=== PATIENT | female | born 1975 | race Caucasian/White ===

== ENCOUNTER 2023-03-30 22:44 | Inpatient (IN) | payer MEDICAID, SELFPAY ==
[2023-03-30] VITALS (12 sets, daily range): BP systolic 94–122; BP diastolic 47–83; BMI 22.6
--- NOTE | 2023-03-30 19:25 | ED.GENMED ---
History of Present Illness
General
Chief Complaint: Abnormal Lab Value
Source: patient
Exam Limitations: none
Time Seen by Provider: 03/30/23 18:54
Travel History
Have you had any contact with someone who has COVID-19?: No
Do you have any symptoms of coronavirus? Fever > 100 degrees, chills, cough, shortness of breath, sore throat, loss of taste or smell, muscle aches, or headache?: No
History of Present Illness
History of Present Illness:
This is a 47 year old female that is brought in by ambulance with c/o abnormal labs. States that she has routine blood work done today and she was told that her Hgb was low. states that they did not tell her what it was. States that she has been a
little dizzy and that she did vomit once. Denies any fever, chills, chest pain, SOB, abd pain, nausea, diarrhea, black or bloody stool, headache, urinary burning.
Past History
Past History
ED Past Medical History: Cancer (Breast right) and Psychiatric (Depression. Schizophrenia,)
ED Past Surgical History: Cholecystectomy, (X 3) and Other (left breast biopsy that was benign)
Social History
Tobacco: Smoker
Alcohol: None
Personal:
Living: with family
Review of Systems
Review of Systems
All Other Systems: ROS reviewed and negative except as documented in HPI and ROS
Constitutional: Reports no symptoms; Denies fever or chills
EENT: Reports no symptoms
Respiratory: Reports no symptoms; Denies cough or trouble breathing
Cardiac: Reports no symptoms; Denies chest pain
ABD/GI: Reports vomiting; Denies abdominal pain, nausea, diarrhea, bloody stools or black stools
: Reports no symptoms; Denies dysuria, frequency or urgency
Musculoskeletal: Reports no symptoms
Skin: Reports no symptoms
Neurological: Reports dizzy; Denies headache
Psychiatric: Reports no symptoms
Phy Exam
General Physical Exam
General Presentation: no apparent distress
General age: appears stated age
General Skin: warm, dry and pale
General Habitus: normal
General Mental: alert
General Hydration: appears well hydrated
ENT Exam
ENT Exam: TM's normal, pharynx normal and neck supple
Eye Exam
Eye Exam: EOMI
Cardiovascular Exam
Cardiovascular Exam: regular rate/rhythm, no edema and normal peripheral pulses
Pulmonary Exam
Pulmonary Exam: lungs clear, no respiratory distress, no rales, chest non tender, no crackles, no rhonchi, no wheezing and no cough
Gastrointestinal Exam
Gastrointestinal Exam: normal bowel sounds, non tender, soft, no organomegaly, no pulsatile mass, non distended and other (Rectal exam hem negative)
Musculoskeletal Exam
Musculoskeletal Exam: full ROM, no edema and other (cast on right foot and lower leg)
Skin Exam
Skin Exam: warm/dry, no rash, no petechia and pallor
Psychiatric Exam
Psychiatric Exam: normal mood/affect
Course
Orders/Labs/Results
Orders:
Orders
03/30/23 18:13
EKG [Electrocardiogram (*1)] Urgent
Reason for Study: Tachycardia
EKG- Treatment ONCE
03/30/23 18:32
Alteplase [Cathflo/Activase] 2 mg IV NOW STA
03/30/23 19:35
Type+Screen Urgent
CMP [Comprehensive Metabolic Panel] Urgent
Complete Blood Count/With Diff Urgent
03/30/23 19:58
* Blood Bank Products Urgent
Blood Bank Products: *Packed RBC Leuko(PRBC's)
Quantity: 2
Transfuse Today: Yes
Reason: Anemia
IV Insert/Care/Rem.- Treatment PRN
03/30/23 20:45
Acetaminophen [Tylenol] 1,000 mg .ROUTE .STK-MED ONE
03/30/23 20:47
Acetaminophen [Tylenol] 1,000 mg PO NOW STA
Abnormal Lab Results
03/30/23
19:35
WBC 4.2 L 10^3/uL
(4.8-10.8)
RBC 1.95 L 10^6/uL
(4.20-5.40)
Hgb 5.4 L* g/dL
(12.0-16.0)
Hct 17.9 L* %
(37.0-47.0)
MCHC 30.2 L g/dL
(33.0-37.0)
RDW 19.2 H %
(11.5-14.5)
Absolute Lymphs (auto) 0.9 L 10^3/uL
(1.2-3.4)
Immature Gran % 1.0 H %
(0-0.5)
Monocytes % 11.0 H %
(1.7-9.3)
Sodium 132 L mmol/L
(135-145)
Potassium 3.0 L mmol/L
(3.5-5.1)
Chloride 91 L mmol/L
(98-107)
Carbon Dioxide 34 H mmol/L
(22-30)
Alkaline Phosphatase 456 H U/L
(38-126)
Total Protein 5.5 L g/dl
(6.3-8.2)
Albumin 2.7 L g/dl
(3.5-5.0)
Crossmatch IS Only See Detail
03/30/23 19:35
03/30/23 19:35
WBC slightly low. H/H very low, Plt normal, Sodium slightly low. hypokalemia, chloride low, carbon dioxide elevation. Alk phos elevation. total protein low. Albumin low.
Vital Signs
Initial and Last Documented VS:
Initial Vital Signs
Pulse Ox
100
03/30/23 18:09
Last Documented Vital Signs
Temp Pulse Resp BP Pulse Ox
98.4 F 110 18 108/72 100
03/30/23 18:11 03/30/23 20:49 03/30/23 20:49 03/30/23 20:49 03/30/23 20:49
MDM/Problems Addressed
Differential Diagnosis Includes:
Abnormal labs, Anemia
MDM/Problems Addressed:
This is a 47 year old female that comes in with c/o abd normal labs. States that she had routine labs done today and she was told that her Hgb was low
Will get labs. Blood consent signed and patient will be given PRBC;s as needed.
Chronic conditions affecting care:
history of Cancer
Acute Exacerbation and/or Progression of Chronic Illness:
NA
*Pulse Oximetry
Patient hypoxic: no
*EKG
Interpreted by ED Provider?: NA
Rate: EKG- N/A
*Call Center Coordinator Interpretation
Rate: tachycardiac
Heart Rate: 110
Rhythm: sinus tachycardia
*Critical Care Note
Total Time (30-74mins, 75-104mins- exclusive of procedures): Not Applicable
ED Attending Note
-
Portions of this chart may have been created with voice recognition software.� Occasional wrong word or��sound alike� substitutions may have occurred due to the inherent limitations of voice recognition software.
Discharge Plan
Departure
Patient Disposition: Admit
Date of Disposition: 03/30/23
Time of Disposition: 20:02
Admit to: Telemetry
Presentation/result/management discussed w/ accepting MD/DO: Hospitalist
Patient with high blood pressure during this ER visit?: No
Condition: Good
Covid-19: Not Applicable
Discharge Problem:
Low hemoglobin
Prescriptions:
No Action
anastrozole 1 mg Tablet
1 mg PO DAILY
acetaminophen 325 mg Tablet
650 mg PO Q8H
acetaminophen 325 mg Tablet
650 mg PO Q6H PRN (Reason: mild pain/temp>100.4)
sennosides-docusate sodium [Senna-S] 8.6-50 mg Tablet
2 tab-cap PO HS
melatonin 3 mg Tablet
6 mg PO HS
tramadol 50 mg Tablet
25 mg PO Q6H PRN (Reason: moderate pain)
alprazolam 0.25 mg Tablet
0.25 mg PO Q12H PRN (Reason: anxiety)
magnesium hydroxide [Milk of Magnesia] 400 mg/5 mL Suspension
30 ml PO DAILY PRN (Reason: if no bm x 3 days)
pantoprazole 40 mg Tablet,Delayed Release (Dr/Ec)
40 mg PO DAILY
Fleet Enema 19-7 gram/118 mL Enema
118 ml IA DAILY PRN (Reason: if suppository is ineffective)
morphine 10 mg/5 mL Solution
0.5 mg PO Q6H PRN (Reason: severe pain/sob)
Rx Instructions:
0.25ml
mirtazapine 15 mg Tablet
15 mg PO HS
duloxetine 30 mg Capsule,Delayed Release(Dr/Ec)
90 mg PO DAILY
magnesium oxide 400 mg magnesium Tablet
400 mg PO BID
Interventions
Interventions:
*Risk Screen - Suicide Last Done: 03/30/23 18:11
*General Assessment Last Done: 03/30/23 18:11
*Neglect/Abuse Screening Last Done: 03/30/23 18:11
ED- Fall Risk Assessment Last Done: 03/30/23 20:08
*ED COVID-19 Vaccine History Last Done: 03/30/23 18:11
[2023-03-30 19:47] LABS: % Basophils 0.2 % (0-2); % Eosinophils 1.2 % (0-6); % Lymphocytes 20.6 % (20.5-51.1); Absolute Eosinophils 0.1 10^3/uL (0-0.7); Absolute Lymphocytes 0.9 10^3/uL (1.2-3.4); Absolute Monocytes 0.5 10^3/uL (0.1-0.6); Absolute Neutrophils 2.8 10^3/uL (1.4-6.5); Mean Corp Hgb Conc. 30.2 g/dL (33.0-37.0); Mean Corpuscular Hgb 27.7 pg (27.0-31.0); Mean Corpuscular Volume 91.8 fL (81.0-99.0); Mean Platelet Volume 8.9 fL (7.4-10.4); Nucleated Red Blood Cells % 2.2 %; Platelet Count 271 10^3/uL (130-400); Red Blood Cell Count 1.95 10^6/uL (4.20-5.40); Red Cell Dist. Width 19.2 % (11.5-14.5); White Blood Cell Count 4.2 10^3/uL (4.8-10.8)
[2023-03-30 19:51] LABS: Hematocrit 17.9 % (37.0-47.0); Hemoglobin 5.4 g/dL (12.0-16.0)
[2023-03-30] MEDS: CATHFLO/ACTIVASE 2 MG IV (19:53)
[2023-03-30 19:59] LABS: ALT (SGPT) 14 U/L (0-35); AST (SGOT) 31 U/L (14-36); Albumin 2.7 g/dl (3.5-5.0); Alkaline Phosphatase 456 U/L (38-126); Blood Urea Nitrogen 16 mg/dl (7-17); Calcium 8.8 mg/dl (8.4-10.2); Carbon Dioxide 34 mmol/L (22-30); Chloride 91 mmol/L (98-107); Estimated Creatinine Clearance 64 ml/min; Glucose 95 mg/dl (70-99); Sodium 132 mmol/L (135-145); Total Bilirubin 0.4 mg/dl (0.2-1.3); Total Protein 5.5 g/dl (6.3-8.2); eGFR > 60.00
--- NOTE | 2023-03-30 20:02 | VATNOTE ---
cathflo given now since no blood return; pt. has peripheral IV for blood transfusion. Will recheck in one hour.
[2023-03-30] MEDS: TYLENOL 1000 MG PO (20:47)
--- NOTE | 2023-03-30 21:13 | VATNOTE ---
left subq port checked @ 2100 for blood return; nothing @ this time. will recheck @ 2200.
--- NOTE | 2023-03-30 21:15 | HPS.HSE ---
Addendum entered and electronically signed by Madeline Guaman DO 03/31/23 00:32:
The patient is seen and examined. I discussed the patient with Madelaine, reviewed her history and physical, and agree with this and her assessment and plan of care as per below.
VSS at this time, AF, she is receiving 1 unit during my examination of PRBC , tolerating it well.
CV RRR, no m/r/g
Lungs CTA b/l
Abd soft, nt/nd
Cast on RLE
Marked anemia, no known active bleeding
-iron studies, B-12, folate
-2 U PRBC, repeat CBC
-Heme/Onc consultation
Hypokalemia-repleted K in ED, repeat lab in am and monitor, check Magnesium
Other chronic medical issues as per below.
Original Note:
Family Physician
-
Family Physician: Leland Uribe, DO
Chief Complaint
-
abnormal labs blood work
History of Present Illness
47 year old female with PMH for right breast ca s/p right mastectomy with lymph nodes removed, depression, schizophrene presented to us with low blood work. patient denied any any rectal bleed and hematemesis. denied abdominal pain. denied fever,
chills, chest pain, sob. denied dysuria or hematuria. patient due for chemo in april due to relapse of breast ca.
hgb of 4.5, 2 units ordered in ER. admitting for further management.
Medical History
Past Medical History
Past Medical History: Reports Other
Additional Past Medical History:
right breat ca
depression
schizophrenia
Past Surgical History: Reports Other
Additional Past Surgical History:
right mastectomy
cholecystectomy
left hip replacement
c section x3
Social History
Tobacco: Smoker (3-5 cigrettes daily)
Alcohol: None
Drug: None
Personal:
Living: [facility]
Family History
Family History: Not pertinent
Allergies / Home Medications
Allergies reflects when Allergies were last updated in [facility].
Home Medications with original date entered in [facility]
Allergy/Medication List:
Allergies
Allergy/AdvReac Type Severity Reaction Status Date / Time
latex Allergy Hives Verified 03/30/23 18:27
Penicillins Allergy Rash Verified 03/30/23 18:27
Home Medications
acetaminophen 325 mg tablet 650 mg PO Q6H PRN mild pain/temp>100.4 03/30/23
acetaminophen 325 mg tablet 650 mg PO Q8H 03/30/23
alprazolam 0.25 mg tablet 0.25 mg PO Q12H PRN anxiety 03/30/23
anastrozole 1 mg tablet 1 mg PO DAILY 03/30/23
duloxetine 30 mg capsule,delayed release 90 mg PO DAILY 03/30/23
magnesium hydroxide 400 mg/5 mL oral suspension (Milk of Magnesia) 30 ml PO DAILY PRN if no bm x 3 days 03/30/23
magnesium oxide 400 mg PO BID 03/30/23
melatonin 3 mg tablet 6 mg PO HS 03/30/23
mirtazapine 15 mg tablet 15 mg PO HS 03/30/23
morphine 10 mg/5 mL oral solution 0.5 mg PO Q6H PRN severe pain/sob 03/30/23
pantoprazole 40 mg tablet,delayed release 40 mg PO DAILY 03/30/23
sennosides 8.6 mg-docusate sodium 50 mg tablet (Senna-S) 2 tab-cap PO HS 03/30/23
sodium phosphates 19 gram-7 gram/118 mL enema (Fleet Enema) 118 ml TN DAILY PRN if suppository is ineffective 03/30/23
tramadol 50 mg tablet 25 mg PO Q6H PRN moderate pain 03/30/23
Review of Systems
-
Constitutional: Reports No Symptoms
EENT: Reports No Symptoms
Respiratory: Reports No Symptoms
Cardiac: Reports No Symptoms
Abdomen/GI: Reports No Symptoms
: Reports No Symptoms
Musculoskeletal: Reports No Symptoms
Skin: Reports No Symptoms
Neurological: Reports No Symptoms
Endocrine: Reports No Symptoms
Hematologic/Lymphatic: Reports No Symptoms
Psych: Reports No Symptoms
Physical Exam
Vital Signs
Vital Signs
Temp Pulse Resp BP Pulse Ox
98.4 F 110 18 108/72 100
03/30/23 18:11 03/30/23 20:49 03/30/23 20:49 03/30/23 20:49 03/30/23 20:49
Physical Exam
General: Well Developed, Well Nourished and No Apparent Distress
HEENT: NormoCephalic, Moist mucous membranes and Atraumatic
Respiratory: Clear
Cardiac: S1/S2 and Regular Rhythm; No Murmur or Rub
GI: Soft, Non Tender, Non Distended and Normal Bowel Sounds; No Organomegaly
Rectal: Deferred by Provider
Musculoskeletal: No Clubbing, No Cyanosis and No Edema
Skin: No Rash
Neuro: Nonfocal/grossly intact
Psych: Calm
Laboratory Results
-
03/30/23 19:35
03/30/23 19:35
Laboratory Results
Total Bilirubin 0.4 mg/dl (0.2-1.3) 03/30/23 19:35
AST 31 U/L (14-36) 03/30/23 19:35
ALT 14 U/L (0-35) 03/30/23 19:35
Alkaline Phosphatase 456 U/L (38-126) H 03/30/23 19:35
Data Reviewed
-
Lab Data: Labs Reviewed by me
Impression/Plan
-
#anemia likely from chronic disease
-hgb 5.4
-no active bleeding
-transfusing with 2 units of blood
-trend hgb
-obtain iron panel, b12, ferritin, folate
-ctm
#hyponatremia likely hypovolemic
-na 132, k 3.0
-kcl oral
-monitor BMP in am
#tachycardia likely from anemia
-EKG with sinus tachy
ctm
#hxt of right breast ca s/p mastectomy/lymph nodes removed
-in relpase
-due for chemo in april
-on anastrazole
-morphine prn for pain
-tramadol continued
#GERD
-PPI continued
#anxiety/depression/schizophrenia
-Xanax, duloxetine, Remeron
#nicotine dependence
-nicotine patch
#DVT prophylaxis
-scd
#CODE status
-full code
--- NOTE | 2023-03-30 22:11 | VATNOTE ---
reassessed port after another 1 hr dwell time of Cathflo. NO blood return. Port flushes well & can be used however. Blood infusing thru left arm peripheral 20p now.
--- NOTE | 2023-03-30 22:19 | VATNOTE ---
500 units heparin instilled in port per protocol.
[2023-03-30] MEDS: KCL ELIXIR 40 MEQ PO (22:54)
[2023-03-31] VITALS (8 sets, daily range): BP systolic 116–146; BP diastolic 74–86; BMI 22.1
[2023-03-31] MEDS: REMERON 15 MG PO ×2 (01:06→21:05)
[2023-03-31] MEDS: MELATONIN 6 MG PO ×2 (01:06→21:05)
[2023-03-31] MEDS: MORPHINE ORAL SOLUTION 0.5 MG PO ×3 (01:28→18:36)
[2023-03-31 01:29] LABS: Magnesium 2.1 mg/dl (1.6-2.3)
--- NOTE | 2023-03-31 01:48 | PTCARENOTE ---
Received patient from ER, AAOx4 with blood transfusing and finished at 0057. Patient pulled over from stretcher to bed with assist of 4. Cast intact to right lower leg with good capillary refill, toes warm and patient able to move them freely.
C/o pain to lower back and b/l hips and medicated per APR. Patient has left chest SQ port. Oriented to unit, call [facility] in reach. Plan of care continues.
[2023-03-31] MEDS: XANAX 0.25 MG PO ×2 (02:30→21:09)
[2023-03-31 06:16] LABS: Hematocrit 31.9 % (37.0-47.0); Mean Corp Hgb Conc. 32.9 g/dL (33.0-37.0); Mean Corpuscular Hgb 27.9 pg (27.0-31.0); Mean Corpuscular Volume 84.8 fL (81.0-99.0); Mean Platelet Volume 8.8 fL (7.4-10.4); Platelet Count 244 10^3/uL (130-400); Red Blood Cell Count 3.76 10^6/uL (4.20-5.40); White Blood Cell Count 3.6 10^3/uL (4.8-10.8)
[2023-03-31 06:21] LABS: Hemoglobin 10.5 g/dL (12.0-16.0)
[2023-03-31 06:41] LABS: Blood Urea Nitrogen 13 mg/dl (7-17); Calcium 8.5 mg/dl (8.4-10.2); Carbon Dioxide 31 mmol/L (22-30); Chloride 102 mmol/L (98-107); Estimated Creatinine Clearance 64 ml/min; Glucose 71 mg/dl (70-99); Iron 138 ug/dl (37-170); Potassium 4.9 mmol/L (3.5-5.1); Sodium 135 mmol/L (135-145); eGFR > 60.00
[2023-03-31 06:51] LABS: Percent Saturation 71 % (20-50); Total Iron Binding Capacity 193 ug/dl (265-497)
[2023-03-31 07:37] LABS: Folate 19.9 ng/ml (2.76-20); Vitamin B12 869 pg/ml (239-931)
[2023-03-31] MEDS: NICODERM TRANSDERMAL 21 MG TRANSDERM (09:23)
[2023-03-31] MEDS: ARIMIDEX 1 MG PO (09:23)
[2023-03-31] MEDS: PROTONIX 40 MG PO (09:24)
[2023-03-31] MEDS: CYMBALTA DELAYED RELEASE 90 MG PO (09:24)
--- NOTE | 2023-03-31 10:17 | W.PN.HOSP.TC ---
Today's Communication/Plan
-
see bold
Assessment / Plan
Assessment / Plan
HPI: 47 year old female with PMH for right breast ca s/p right mastectomy with lymph nodes removed, depression, schizophrene presented to us with low blood work. patient denied any any rectal bleed and hematemesis. denied abdominal pain. denied
fever, chills, chest pain, sob. denied dysuria or hematuria. patient due for chemo in april due to relapse of breast ca. Hgb of 4.5, 2 units ordered in ER. admitting for further management.
#anemia likely from chronic disease
Hemoglobin 10.5 today, improved from 5.4 status post 2 units of packed red blood cells on 03/30/2023
Iron studies not accurate since they were drawn this morning after she received the blood
Denies black or bloody stools, vaginal bleeding, or hematuria
Hematology consult pending
#hyponatremia likely hypovolemic
Resolved with IV fluids
#sinus tachycardia likely from anemia
Improved with IV fluids and IV hydration
#hxt of right breast ca s/p mastectomy/lymph nodes removed
In relpase, due for chemo in april
Continue on anastrazole
Outpatient follow-up
#GERD
PPI continued
#anxiety/depression/schizophrenia
Xanax, duloxetine, Remeron
#nicotine dependence
nicotine patch
DVT prophylaxis�SCDs
Full code
Physical Exam
General: Appears chronically ill, no acute distress
HEENT: Normocephalic, Atraumatic, EOMI, MMM
Respiratory: Clear to Auscultation bilaterally
Cardiac: Normal S1/S2, Regular Rate and Rhythm
GI: Soft, Nontender, Nondistended, Normal Bowel Sounds
Extremities: No Clubbing, Cyanosis, or Edema
Neuro: Nonfocal/Grossly Intact
Anticipated Discharge: Within 24 hours
Subjective/Interval History
-
Date of Service: March 31, 2023
Feels much better after getting 2 units of blood.
Objective Data
-
Labs:
Laboratory Results
03/31/23 03/31/23
04:14 05:45
WBC Cancelled 3.6 L
Hgb Cancelled 10.5 L D
Hct Cancelled 31.9 L
Plt Count Cancelled 244
Sodium Cancelled 135
Potassium Cancelled 4.9 D
Chloride Cancelled 102
Carbon Dioxide Cancelled 31 H
BUN Cancelled 13
Creatinine Cancelled 0.6
Glucose Cancelled 71
Calcium Cancelled 8.5
Vital Signs:
Vital Signs
Temp Pulse Resp BP Pulse Ox
98.1 F 95 18 137/83 97
03/31/23 07:30 03/31/23 07:30 03/31/23 07:30 03/31/23 07:30 03/31/23 07:30
I&O
03/30/23 03/31/23 04/01/23
06:59 06:59 06:59
Intake Total 250 / 250
Balance 250 / 250
--- NOTE | 2023-03-31 11:33 | CM ---
Patient seen bedside, initial assessment completed. Patient reports she resides at [facility] in [place] and is a LTC resident. Patient reports she uses a wheelchair, patient denies VN or SNF. Patient confirms PCP Dr. Uribe, pharmacy used through
[facility], CM will call to confirm pharmacy. Patient is hopeful to go back to [facility] today. CM spoke with Lynn in admissions at [facility] ([phone], ext [phone]), confirmed patient is a LTC resident and can accept patient back upon time of
discharge. Per Lynn, patient does use a wheelchair and she has not seen the patient ambulate with a walker. CM will continue to follow for discharge planning needs.
Plan; return to [facility] when stable
Report: [phone] ext [phone] (first floor)
[2023-03-31] MEDS: TYLENOL 650 MG PO (12:12)
--- NOTE | 2023-03-31 17:35 | CON.ONC ---
Impression
Impression
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
Plan
Plan
transfusion -- if stable in next 48 hours d/c with followup to our office
Patient History
History of Present Illness
unfortunate 47 yo WF with hx of schizophrenia admitted with fatigue from a LTC facility for fatigue with lab values in ER noting normal ANC and plts but with HGB 5.4 with CMP noting elevated alk phos with normal transaminases, normal B12 and folate
with elevated ferritin 1140 andelevated saturation 71%. Other than fatigue she notes no excessive pain -- she indicates she was recently hospitalized in [facility] for which she was diagnosed with metastatic breast cancer to the bones but d/c w/o f/u
with oncology and w/o pain meds though her outside meds indicate she is on anastrazole/tramadol. She cannot recall her original breast cancer surgeon or need for therapy following same though she had mastectomy. She had greater than expected
response to 2 units pRBCs which may be accounted for by her small stature
Past-Medical/Surgical History
depression/ schizophrenia/ r mastectomy / cholecystectomy
Patient Medication
Medication Instructions Recorded Confirmed Last Taken Type
acetaminophen 325 mg tablet 650 mg PO Q6H PRN mild 03/30/23 03/30/23 Unknown History
pain/temp>100.4
acetaminophen 325 mg tablet 650 mg PO Q8H 03/30/23 03/30/23 Unknown History
alprazolam 0.25 mg tablet 0.25 mg PO Q12H PRN anxiety 03/30/23 03/30/23 Unknown History
anastrozole 1 mg tablet 1 mg PO DAILY Cancer 03/30/23 03/30/23 Unknown History
duloxetine 30 mg capsule,delayed 90 mg PO DAILY Mental 03/30/23 03/30/23 Unknown History
release Health/Anxiety
magnesium hydroxide 400 mg/5 mL 30 ml PO DAILY PRN if no bm x 3 03/30/23 03/30/23 Unknown History
oral suspension (Milk of Magnesia) days
magnesium oxide 400 mg PO BID Supplement 03/30/23 03/30/23 Unknown History
melatonin 3 mg tablet 6 mg PO HS Sleep 03/30/23 03/30/23 Unknown History
mirtazapine 15 mg tablet 15 mg PO HS Mental Health/Anxiety 03/30/23 03/30/23 Unknown History
morphine 10 mg/5 mL oral solution 0.5 mg PO Q6H PRN severe pain/sob 03/30/23 03/30/23 Unknown History
pantoprazole 40 mg tablet,delayed 40 mg PO DAILY Gastrointestinal 03/30/23 03/30/23 Unknown History
release Issue
sennosides 8.6 mg-docusate sodium 2 tab-cap PO HS Constipation 03/30/23 03/30/23 Unknown History
50 mg tablet (Senna-S)
sodium phosphates 19 gram-7 118 ml SC DAILY PRN if suppository 03/30/23 03/30/23 Unknown History
gram/118 mL enema (Fleet Enema) is ineffective
tramadol 50 mg tablet 25 mg PO Q6H PRN moderate pain 03/30/23 03/30/23 Unknown History
Active Medications
Generic Name Dose Route Start Last Admin
Trade Name Freq PRN Reason Stop Dose Admin
Acetaminophen 650 mg 03/31/23 00:35 03/31/23 12:12
Acetaminophen 325 Mg Tablet PO 04/28/23 00:34 650 mg
Q6H PRN Administration
mild pain/temp>100.4
Alprazolam 0.25 mg 03/31/23 00:35 03/31/23 02:30
Alprazolam 0.25 Mg Tablet PO 04/28/23 00:34 0.25 mg
Q12H PRN Administration
anxiety
Anastrozole 1 mg 03/31/23 08:00 03/31/23 09:23
Anastrozole 1 Mg Tablet PO 04/28/23 07:59 1 mg
DAILY JANE Administration
Duloxetine HCl 90 mg 03/31/23 08:00 03/31/23 09:24
Duloxetine Delayed Release 30 Mg Capsule PO 04/28/23 07:59 90 mg
DAILY JANE Administration
Heparin Sodium (Porcine) 500 unit 03/30/23 22:10
Heparin Flush Pf (100 Unit/Ml) 5 Ml Syringe IV 04/27/23 22:09
PRN PRN
access
Melatonin 6 mg 03/31/23 00:35 03/31/23 01:06
Melatonin 3 Mg Tablet PO 04/28/23 00:34 6 mg
HS JANE Administration
Mirtazapine 15 mg 03/31/23 00:35 03/31/23 01:06
Mirtazapine 15 Mg Regular Release Tablet PO 04/28/23 00:34 15 mg
HS JANE Administration
Morphine Sulfate 0.5 mg 03/31/23 00:35 03/31/23 09:29
Morphine Oral Solution (10 Mg/5 Ml) Cup PO 04/14/23 00:34 0.5 mg
Q6H PRN Administration
severe pain/sob
Nicotine 21 mg 03/31/23 08:00 03/31/23 09:23
Nicotine 21 Mg Patch TRANSDERM 04/28/23 07:59 21 mg
DAILY JANE Administration
Pantoprazole Sodium 40 mg 03/31/23 08:00 03/31/23 09:24
Pantoprazole 40 Mg Delayed Release Tablet PO 04/28/23 07:59 40 mg
DAILY JANE Administration
Sodium Chloride 0 flush 03/31/23 01:00
Sodium Chloride 0.9% (Flush) Syringe IV 04/28/23 00:59
PER PROTOCOL JANE
Tramadol HCl 25 mg 03/31/23 00:35
Tramadol Hcl 50 Mg Tablet PO 04/28/23 00:34
Q6H PRN
moderate pain
Review of Systems
-
All Other Systems: Reviewed and Negative
Physical Exam
-
General: Comfortable
HEENT: Moist Mucous Membranes
Cardiology: Normal Sinus Rhythm
Pulmonary: Clear
GI: Soft and Flat
Musculoskeletal: No Clubbing, No Cyanosis and No Edema
Neurology: Non Focal
Skin: Other (no skin lesions @ mastectomy scar)
Psych: Calm and Confused
Labs
Lab Results
WBC 3.6 10^3/uL (4.8-10.8) L 03/31/23 05:45
RBC 3.76 10^6/uL (4.20-5.40) L 03/31/23 05:45
Hgb 10.5 g/dL (12.0-16.0) L D 03/31/23 05:45
Hct 31.9 % (37.0-47.0) L 03/31/23 05:45
MCV 84.8 fL (81.0-99.0) 03/31/23 05:45
MCH 27.9 pg (27.0-31.0) 03/31/23 05:45
MCHC 32.9 g/dL (33.0-37.0) L 03/31/23 05:45
RDW 17.0 % (11.5-14.5) H 03/31/23 05:45
Plt Count 244 10^3/uL (130-400) 03/31/23 05:45
MPV 8.8 fL (7.4-10.4) 03/31/23 05:45
Abs Immat Gran (auto) 0.0 10^3/uL (0-0.05) 03/30/23 19:35
Absolute Neuts (auto) 2.8 10^3/uL (1.4-6.5) 03/30/23 19:35
Absolute Lymphs (auto) 0.9 10^3/uL (1.2-3.4) L 03/30/23 19:35
Absolute Monos (auto) 0.5 10^3/uL (0.1-0.6) 03/30/23 19:35
Absolute Eos (auto) 0.1 10^3/uL (0-0.7) 03/30/23 19:35
Absolute Basos (auto) 0.0 10^3/uL (0-0.2) 03/30/23 19:35
Immature Gran % 1.0 % (0-0.5) H 03/30/23 19:35
Neutrophils % 66.0 % (42.2-75.2) 03/30/23 19:35
Lymphocytes % 20.6 % (20.5-51.1) 03/30/23 19:35
Monocytes % 11.0 % (1.7-9.3) H 03/30/23 19:35
Eosinophils % 1.2 % (0-6) 03/30/23 19:35
Basophils % 0.2 % (0-2) 03/30/23 19:35
Creatinine 0.6 mg/dL (0.6-1.0) 03/31/23 05:45
Vital Signs
Vital Signs
Temp Pulse Resp BP Pulse Ox
98 F 102 16 125/83 99
03/31/23 15:25 03/31/23 15:25 03/31/23 15:25 03/31/23 15:25 03/31/23 15:25
[2023-03-31] MEDS: ULTRAM 25 MG PO (21:24)
[2023-04-01] MEDS: MORPHINE ORAL SOLUTION 0.5 MG PO ×2 (00:09→10:14)
[2023-04-01] MEDS: MORPHINE SULFATE 0.5 MG IV (02:34)
[2023-04-01 05:09] VITALS: BP 137/76
--- NOTE | 2023-04-01 07:47 | W.PN.ONC2 ---
Today's Communication / Plan
-
Await CBC. If stable discharge back to [facility] with outpatient oncologic follow-up.
Anastrozole is listed on her medication list. Continue this for now. Suspect she is taking it even if she denies taking antineoplastic therapy as she is a care home patient and they would be prescribing it if it is on her list.
Impression
Impression
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
Schizophrenia
Plan
Plan
Await follow-up CBC following transfusion. Symptomatic improvement suggest good response.
If stable, okay for discharge with follow-up either with her primary oncologist through [facility] or in our office as she lives in [place].
My office is aware. Please also have case management coordinate with the [facility] breast cancer navigators to ensure seamless transition for oncologic follow-up.
Subjective/Objective
Chief Complaint
ACS Oncology F/U
Subjective
Tells me she feels a whole lot better following blood transfusion. Recalls her breast cancer history namely she was diagnosed with right-sided breast cancer 11/29/2015 and underwent mastectomy and had 6 positive lymph nodes. Had recurrence in her
bones in the summer 2022. Does not seem to be on any active therapy. Recently transferred and lives at [facility] in [place] since 02/25/2023. Does not have an oncologist that she is aware of although there is some documentation
that she is 'due for initiation of chemotherapy in April '. Will need to clarify who is her oncologist as patient states that she does not have one.
Vital Signs:
Vital Signs
Temp Pulse Resp BP Pulse Ox
98.1 F 111 18 137/76 97
04/01/23 05:09 04/01/23 05:09 04/01/23 05:09 04/01/23 05:09 04/01/23 05:09
Lab Results:
Laboratory Data
WBC 3.6 10^3/uL (4.8-10.8) L 03/31/23 05:45
Hgb 10.5 g/dL (12.0-16.0) L D 03/31/23 05:45
Plt Count 244 10^3/uL (130-400) 03/31/23 05:45
eGFR > 60.00 03/31/23 05:45
Physical Exam
HEENT: No Jaundice
Cardiology: S1 and S2
Pulmonary: Clear
GI: Soft
[2023-04-01 07:50] VITALS: BP 141/85
[2023-04-01 08:01] LABS: Hematocrit 33.7 % (37.0-47.0); Hemoglobin 11.1 g/dL (12.0-16.0); Mean Corp Hgb Conc. 32.9 g/dL (33.0-37.0); Mean Corpuscular Hgb 28.5 pg (27.0-31.0); Mean Corpuscular Volume 86.6 fL (81.0-99.0); Mean Platelet Volume 8.8 fL (7.4-10.4); Platelet Count 190 10^3/uL (130-400); Red Blood Cell Count 3.89 10^6/uL (4.20-5.40); Red Cell Dist. Width 16.9 % (11.5-14.5); White Blood Cell Count 4.3 10^3/uL (4.8-10.8)
[2023-04-01 08:26] LABS: Blood Urea Nitrogen 18 mg/dl (7-17); Calcium 9.2 mg/dl (8.4-10.2); Carbon Dioxide 24 mmol/L (22-30); Chloride 100 mmol/L (98-107); Estimated Creatinine Clearance 64 ml/min; Glucose 91 mg/dl (70-99); Potassium 4.8 mmol/L (3.5-5.1); Sodium 134 mmol/L (135-145); eGFR > 60.00
[2023-04-01 08:33] VITALS: BP 141/85; BMI 21.6
--- NOTE | 2023-04-01 08:42 | W.PN.HOSP.TC ---
Today's Communication/Plan
-
Discharge today
Assessment / Plan
Assessment / Plan
HPI: 47 year old female with PMH for right breast ca s/p right mastectomy with lymph nodes removed, depression, schizophrene presented to us with low blood work. patient denied any any rectal bleed and hematemesis. denied abdominal pain. denied
fever, chills, chest pain, sob. denied dysuria or hematuria. patient due for chemo in april due to relapse of breast ca. Hgb of 4.5, 2 units ordered in ER. admitting for further management.
#anemia likely from chronic disease
Hemoglobin 11.1 today, was 10.5 , improved from 5.4 status post 2 units of packed red blood cells on 03/30/2023
Iron studies not accurate since they were drawn this morning after she received the blood
Denies black or bloody stools, vaginal bleeding, or hematuria
Appreciate hematology input, anemia is likely myelophthisic anemia vs inflammatory chronic disease anemia
Patient is medically stable for discharge back to [facility]
#hyponatremia likely hypovolemic
Resolved with IV fluids
#sinus tachycardia likely from anemia
Improved with IV fluids and IV hydration
#hxt of right breast ca s/p mastectomy/lymph nodes removed
In relpase, due for chemo in april
Continue on anastrazole
Outpatient follow-up
#GERD
PPI continued
#anxiety/depression/schizophrenia
Xanax, duloxetine, Remeron
#nicotine dependence
nicotine patch
DVT prophylaxis�SCDs
Full code
Physical Exam
General: Appears chronically ill, no acute distress
HEENT: Normocephalic, Atraumatic, EOMI, MMM
Respiratory: Clear to Auscultation bilaterally
Cardiac: Normal S1/S2, Regular Rate and Rhythm
GI: Soft, Nontender, Nondistended, Normal Bowel Sounds
Extremities: No Clubbing, Cyanosis, or Edema
Neuro: Nonfocal/Grossly Intact
Anticipated Discharge: Today
Subjective/Interval History
-
Date of Service: April 01, 2023
Patient feels much better after blood transfusion.
Objective Data
-
Labs:
Laboratory Results
04/01/23
07:40
WBC 4.3 L
Hgb 11.1 L
Hct 33.7 L
Plt Count 190 D
Sodium 134 L
Potassium 4.8
Chloride 100
Carbon Dioxide 24
BUN 18 H
Creatinine 0.5 L
Glucose 91
Calcium 9.2
Vital Signs:
Vital Signs
Temp Pulse Resp BP Pulse Ox
97.8 F 97 12 141/85 100
04/01/23 08:33 04/01/23 08:33 04/01/23 08:33 04/01/23 08:33 04/01/23 08:33
I&O
03/31/23 04/01/23 04/02/23
06:59 06:59 06:59
Intake Total 250 / 250 900 / 900
Balance 250 / 250 900 / 900
[2023-04-01] MEDS: NICODERM TRANSDERMAL 21 MG TRANSDERM (10:15)
[2023-04-01] MEDS: ARIMIDEX 1 MG PO (10:16)
[2023-04-01] MEDS: CYMBALTA DELAYED RELEASE 90 MG PO (10:16)
[2023-04-01] MEDS: PROTONIX 40 MG PO (10:16)
[2023-04-01 11:38] VITALS: BP 149/89
[2023-04-01] MEDS: FLUZONE QUAD 2023-2024 SYRINGE 0.5 ML IM (13:23)
--- NOTE | 2023-04-01 15:01 | CM ---
CM following re: d/c planning
Chart reviewed
Pt is medically stable for d/c and will be transferred back to [facility]
CM completed inhouse transport form and acute care w/c van will transport
Pt transport is set up for 2:30pm
Updated clinicals were placed via care port and [facility] in admissions were both notified of transport time
CM spoke with Chelsie José rag washer with oncology to help coordinate outpatient tx
No additional d/c needs identified
PLAN; d/c back to [facility]
Report: [phone] ext. [phone]
--- NOTE | 2023-04-01 17:36 | W.DCSUMMARY ---
Discharge Summary
Discharge Data
Date of Admission: 03/30/23
Date of Discharge: 04/01/23
-
Pending Results: No
Hospital Course
Discharge diagnosis:
Symptomatic anemia
Hypovolemic hyponatremia
Hypokalemia
Sinus tachycardia
History of right-sided breast cancer status postmastectomy, in relapse
Gastroesophageal reflux disease
Schizophrenia
Anxiety/depression
Cigarette nicotine dependency
Consults: Heme-onc
Hospital course:
47 year old female with a past medical history of right sided breast cancer s/p right mastectomy with lymph node removal, depression, and schizophrenia was admitted for symptomatic anemia. Patient's hemoglobin was found to be 5.4. She denies black
or bloody stools. No vaginal bleeding, no hematuria. Iron studies were not accurate since they were drawn after she received her blood. She was transfused 2 units of packed red blood cells, her hemoglobin improved to 10.5, and remained stable at
11.1 on the day of discharge.
Patient was seen in conjunction with hematology. Hematology suspects that she has�myelophthisic anemia vs inflammatory chronic disease anemia. She does have a history of right-sided breast cancer status postmastectomy with lymph node removal. Her
breast cancer is in relapse, she is due for chemo in April. She needs to continue her anastrozole, and follow-up with her usual oncologist in the office.
She was noted to have hypovolemic hyponatremia, which improved with IV fluids. She had hypokalemia. This was repleted and resolved. Her magnesium was normal.
Patient's medical conditions have been optimized. She has been cleared by hematology for discharge. She needs to follow-up with her usual oncologist in the office, as well as her primary care doctor 1 week.
Disposition: Back to [facility]
Discharge planning: Required 34 min
Discharge Plan
-
Patient Disposition: Detention/SNF
Discharge Diagnosis/Procedures: Symptomatic anemia, hypovolemic hyponatremia, sinus tachycardia, right breast cancer in relapse
Condition: Fair
Diet: Regular
Activity: As tolerated
Blood Work: CBC, BMP on 04/06/2023
Activity Restrictions/Additional Instructions:
Your hemoglobin was initially 5.4. Hematology thinks your anemia is from either chronic disease versus metastases of the breast cancer to the bone. You received 2 units of packed red blood cells, your hemoglobin improved to 10.5.
We recommend that you quit smoking, please use a nicotine patch to help.
Please follow-up with your usual oncologist, as well as your primary care doctor in 1 week.
Referrals:
Leland Uribe, DO [Family Provider] - in one week
Prescriptions:
New
nicotine 21 mg/24 hr Patch 24 Hour
21 mg transdermal DAILY Qty: 0 0RF
Continued
anastrozole 1 mg Tablet
1 mg PO DAILY
acetaminophen 325 mg Tablet
650 mg PO Q8H
acetaminophen 325 mg Tablet
650 mg PO Q6H PRN (Reason: mild pain/temp>100.4)
sennosides-docusate sodium [Senna-S] 8.6-50 mg Tablet
2 tab-cap PO HS
melatonin 3 mg Tablet
6 mg PO HS
tramadol 50 mg Tablet
25 mg PO Q6H PRN (Reason: moderate pain)
alprazolam 0.25 mg Tablet
0.25 mg PO Q12H PRN (Reason: anxiety)
magnesium hydroxide [Milk of Magnesia] 400 mg/5 mL Suspension
30 ml PO DAILY PRN (Reason: if no bm x 3 days)
pantoprazole 40 mg Tablet,Delayed Release (Dr/Ec)
40 mg PO DAILY
Fleet Enema 19-7 gram/118 mL Enema
118 ml VA DAILY PRN (Reason: if suppository is ineffective)
morphine 10 mg/5 mL Solution
0.5 mg PO Q6H PRN (Reason: severe pain/sob)
Rx Instructions:
0.25ml
mirtazapine 15 mg Tablet
15 mg PO HS
duloxetine 30 mg Capsule,Delayed Release(Dr/Ec)
90 mg PO DAILY
magnesium oxide 400 mg magnesium Tablet
400 mg PO BID
Discharge Orders:
Discharge Patient (As Directed); Ordered 04/01/23
Ordered By: Isael Park
Discharge Date and Time
Discharge Date/Time: 04/01/23 15:14
--- NOTE | 2023-04-06 11:50 | OID.BR.INTR ---
[facility] Breast Navigator - Initial
- -
Patient referred for NN f/u from Case Management. Reached out o Navneet Martel LCSW who contacted facility patient residing in. They advised patient has existing oncologist Dr. Yeimi Rubio at [facility]. Navneet to inform [place].
== END 2023-04-01 15:14 | DRG 598 ==
LOC: 4 EAST ACU 22:44
PROVIDERS: Registered Nurse; ADMITTING PHYSICIAN Internal Medicine; ATTENDING PHYSICIAN Family Medicine; CONSULT PHYSICIAN Internal Medicine Hematology & Oncology; EMERGENCY PHYSICIAN Emergency Medicine; FAMILY PHYSICIAN Internal Medicine
PROC: 30233N1 Transfusion of Nonautologous Red Blood Cells into Peripheral Vein, Percutaneous Approach (ICD-10-PCS; 2023-04-01)
DX: C50.911 Malignant neoplasm of unspecified site of right female breast (principal); C79.51 Secondary malignant neoplasm of bone; E87.1 Hypo-osmolality and hyponatremia; D63.8 Anemia in other chronic diseases classified elsewhere; R00.0 Tachycardia, unspecified; K21.9 Gastro-esophageal reflux disease without esophagitis; F20.9 Schizophrenia, unspecified; F32.A Depression, unspecified; F41.9 Anxiety disorder, unspecified; F17.200 Nicotine dependence, unspecified, uncomplicated; Z90.11 Acquired absence of right breast and nipple
CPT/HCPCS: 36430; 80048; 80053; 82607; 82728; 82746; 83540; 83550; 83735; 85025; 85027; 86850; 86900; 86901; 86920; 87070; 90686; 93005; 96374; 96375; 99285; 99406; G0008; J2997; P9016

== ENCOUNTER 2023-06-04 06:27 | Inpatient (IN) | payer OTHER, SELFPAY ==
[2023-06-04] VITALS (21 sets, daily range): BP systolic 115–157; BP diastolic 66–90; BMI 21.3
[2023-06-04 04:24] LABS: % Basophils 0.6 % (0-2); % Eosinophils 1.1 % (0-6); % Immature Granulocytes 1.3 % (0-0.5); % Lymphocytes 18.5 % (20.5-51.1); % Monocytes 13.2 % (1.7-9.3); % Neutrophils 65.3 % (42.2-75.2); Absolute Eosinophils 0.1 10^3/uL (0-0.7); Absolute Immature Granulocytes 0.1 10^3/uL (0-0.05); Absolute Lymphocytes 0.9 10^3/uL (1.2-3.4); Absolute Monocytes 0.6 10^3/uL (0.1-0.6); Absolute Neutrophils 3.1 10^3/uL (1.4-6.5); Mean Corp Hgb Conc. 31.1 g/dL (33.0-37.0); Mean Corpuscular Hgb 26.7 pg (27.0-31.0); Mean Corpuscular Volume 85.9 fL (81.0-99.0); Mean Platelet Volume 9.4 fL (7.4-10.4); Nucleated Red Blood Cells % 2.8 %; Platelet Count 292 10^3/uL (130-400); Red Blood Cell Count 2.06 10^6/uL (4.20-5.40); Red Cell Dist. Width 17.8 % (11.5-14.5); White Blood Cell Count 4.7 10^3/uL (4.8-10.8)
[2023-06-04 04:29] LABS: Hematocrit 17.7 % (37.0-47.0); Hemoglobin 5.5 g/dL (12.0-16.0)
--- NOTE | 2023-06-04 04:42 | ED.GENMED ---
History of Present Illness
General
Chief Complaint: Abnormal Lab Value
Source: patient, ambulance crew, shelter and previous hospital records (Previous hospitalization March of this year for similar symptomatic anemia. Hemoglobin 5.4 at that time. Received 2 units packed red blood cells. Evaluated by
heme-onc.)
Exam Limitations: none
Time Seen by Provider: 06/04/23 04:33
Nursing documentation reviewed up to this point in time: agreed with
Travel History
Have you had any contact with someone who has COVID-19?: No
Do you have any symptoms of coronavirus? Fever > 100 degrees, chills, cough, shortness of breath, sore throat, loss of taste or smell, muscle aches, or headache?: No
History of Present Illness
History of Present Illness:
This is a 48-year-old woman who has history of recurrent breast cancer metastatic to the bone along with history of chronic anemia. Hospitalized here in March for symptomatic anemia with hemoglobin of 5.4 at that time. Received 2 units of
packed red blood cells. Evaluated by oncology. Anemia thought to be related to myelophthisic anemia versus inflammatory chronic disease anemia.
She follows with an oncologist at [facility], Dr. Yeimi Pittman.
Plan was to start chemotherapy in April but thus far has not been initiated. She is maintained on anastrozole and tramadol.
She is a resident of long-term care facility.
She admits to progressive generalized fatigue and outside labs revealed hemoglobin of 6. Sent to the ED for further evaluation.
She states she did suffer a fall with ankle fracture in March, treated with a boot for 8 weeks which was recently discontinued. She states ankle has been feeling well and no recurrent falls since then.
She admits to intermittent nausea but has had no vomiting. Chronically poor appetite. No fever nor chills. She denies black or tarry stools.
Past History
Past History
ED Past Medical History: Cancer (Breast right), Psychiatric (Depression. Schizophrenia,) and Other (Anemia of chronic disease versus myelodysplasia)
ED Past Surgical History: Cholecystectomy, (X 3) and Other (left breast biopsy that was benign)
Social History
Tobacco: Smoker
Alcohol: None
Personal:
Living: shelter
Employment: Disabled
Family History
Family History: Other (Noncontributory)
Phy Exam
Physical Exam
Physical Exam:
GENERAL: 48-year-old woman is quite thin and frail. Awake and alert, pleasant, easily communicative.
EYE: pupils equal and reactive. Moderately pale conjunctiva. Anicteric
NECK: Supple, nontender, no meningismus, no significant adenopathy.
ENT: posterior pharynx is clear, oral mucosa is mildly dry. No rhinorrhea.
CARDIAC: Regular rate and rhythm. no murmur.
LUNGS: Clear breath sounds bilaterally, no acute respiratory distress, no wheezes/rales/rhonchi
ABDOMEN: Soft, nondistended, without focal tenderness, no r/g, no cvat. normoactive BS.
NEUROLOGICAL: Alert and oriented x3, no focal neuro deficits.
SKIN: Warm and dry, significantly pale in color, skin intact. No rash.
MUSCULOSKELETAL: No C/C/E. peripheral pulses are full and equal b/l. No palpable tenderness.
PSYCH: Normal and appropriate interaction.
Course
Orders/Labs/Results
Orders:
Orders
06/04/23 04:11
Type+Screen Urgent
CMP [Comprehensive Metabolic Panel] Urgent
Complete Blood Count/With Diff Urgent
06/04/23 04:41
Blood Bank Products [* Blood Bank Products] Urgent
Blood Bank Products: *Packed RBC Leuko(PRBC's)
Quantity: 2
Transfuse Today: Yes
Reason: Anemia
Patient will require pre-treatment for transfusion:: No
06/04/23 05:08
Morphine Sulfate 4 mg .ROUTE .STK-MED ONE
06/04/23 05:10
Morphine Sulfate 4 mg IV NOW STA
06/04/23 05:50
Admit/Transfer Patient As Directed
Co-Sign Provider:
Level of Care: Inpatient admission
Assign to:: Medical/Surgical
Physician / Group: Ralf
Diagnosis: Symptomatic Anemia
Reason for Hospitalization: Symptomatic Anemia
Expected length of stay greater than two midnights?: Yes
ELOS- Estimated Length of Stay in days: 2
I certify the patient meets the requirements for IP care: Yes
06/04/23 05:51
Code Status As Directed
Resuscitation Status: Full Code
Abnormal Lab Results
06/04/23
04:11
WBC 4.7 L 10^3/uL
(4.8-10.8)
RBC 2.06 L 10^6/uL
(4.20-5.40)
Hgb 5.5 L* g/dL
(12.0-16.0)
Hct 17.7 L* %
(37.0-47.0)
MCH 26.7 L pg
(27.0-31.0)
MCHC 31.1 L g/dL
(33.0-37.0)
RDW 17.8 H %
(11.5-14.5)
Abs Immat Gran (auto) 0.1 H 10^3/uL
(0-0.05)
Absolute Lymphs (auto) 0.9 L 10^3/uL
(1.2-3.4)
Immature Gran % 1.3 H %
(0-0.5)
Lymphocytes % 18.5 L %
(20.5-51.1)
Monocytes % 13.2 H %
(1.7-9.3)
Sodium 131 L mmol/L
(135-145)
Chloride 97 L mmol/L
(98-107)
BUN 23 H mg/dl
(7-17)
Alkaline Phosphatase 606 H U/L
(38-126)
Total Protein 5.6 L g/dl
(6.3-8.2)
Albumin 2.7 L g/dl
(3.5-5.0)
Crossmatch IS Only See Detail
06/04/23 04:11
06/04/23 04:11
Vital Signs
Initial and Last Documented VS:
Initial Vital Signs
Pulse Ox
99
06/04/23 03:45
Last Documented Vital Signs
Temp Pulse Resp BP Pulse Ox
99.0 F 101 11 118/73 96
06/04/23 06:38 06/04/23 07:00 06/04/23 07:00 06/04/23 07:00 06/04/23 07:00
MDM/Problems Addressed
Differential Diagnosis Includes:
Concern for recurrent severe symptomatic anemia.
Concern for progressive metastatic disease from breast cancer.
Concern for electrolyte abnormality, acute kidney injury.
Chronic conditions affecting care: Psychiatric illness and Cancer
Acute Exacerbation and/or Progression of Chronic Illness: Cancer
*Pulse Oximetry
Patient hypoxic: no
*Engineering Equipment Operator Interpretation
Rate: tachycardiac
Interpretation: abnormal
Rhythm: sinus
*Critical Care Note
Total Time (30-74mins, 75-104mins- exclusive of procedures): Not Applicable
Update Note
Update Note:
Hemoglobin has returned severely low at 5.5.
Patient has been typed and crossed for 2 units packed red blood cells.
She reports no prior history of adverse reactions to blood transfusions and has not required blood transfusion since last hospitalization in March.
Chemistries show mild prerenal azotemia with BUN of 23, creatinine 0.7. Clinically appears mildly dry patient admits to chronically poor oral intake.
Significantly elevated alkaline phosphatase, similar to previous most consistent with bony metastatic disease.
Due to significant anemia, symptomatic in nature we will plan to transfuse 2 units of packed red blood cells and will admit to hospitalist service.
ED Attending Note
-
Portions of this chart may have been created with voice recognition software.� Occasional wrong word or��sound alike� substitutions may have occurred due to the inherent limitations of voice recognition software.
Discharge Plan
Departure
Patient Disposition: Admit
Date of Disposition: 06/04/23
Time of Disposition: 04:55
Admit to: Telemetry
Admit to doctor: Ralf
Presentation/result/management discussed w/ accepting MD/DO: Hospitalist
Condition: Fair
Discharge Problem:
symptomatic severe anemia
Interventions
Interventions:
*Risk Screen - Suicide Last Done: 06/04/23 03:45
*General Assessment Last Done: 06/04/23 03:46
*Neglect/Abuse Screening Last Done: 06/04/23 03:46
ED- Fall Risk Assessment Last Done: 06/04/23 03:46
*ED COVID-19 Vaccine History Last Done: 06/04/23 03:46
[2023-06-04 04:48] LABS: ALT (SGPT) < 10 U/L (0-35); AST (SGOT) 27 U/L (14-36); Albumin 2.7 g/dl (3.5-5.0); Alkaline Phosphatase 606 U/L (38-126); Blood Urea Nitrogen 23 mg/dl (7-17); Calcium 9.5 mg/dl (8.4-10.2); Carbon Dioxide 29 mmol/L (22-30); Chloride 97 mmol/L (98-107); Estimated Creatinine Clearance 48 ml/min; Glucose 92 mg/dl (70-99); Potassium 3.5 mmol/L (3.5-5.1); Sodium 131 mmol/L (135-145); Total Bilirubin 0.2 mg/dl (0.2-1.3); Total Protein 5.6 g/dl (6.3-8.2); eGFR > 60.00
[2023-06-04] MEDS: MORPHINE SULFATE 4 MG IV (05:10)
--- NOTE | 2023-06-04 05:55 | HPS.HSE ---
Family Physician
-
Family Physician: Leland Uribe, DO
Chief Complaint
-
Fatigue / Weakness
History of Present Illness
Patient is a 48y F with PMH significant for metastatic breast cancer who presents to ED complaining of lightheadedness, dizziness and general fatigue for the past 2-3 weeks. Patient was hospitalized here in March for similar presentation with
Hgb at that time = 5.4 g/dL. Patient denies any abdominal pain. No noted bleeding including hematemesis, hemoptysis, hematochezia or melena.
Patient complains of fairly consistent / constant nausea and relatively poor appetite as a result.
She is currently on no active cancer treatment - though prior documentation noted plan to begin chemotherapy in April.
She follows with Dr. Rubio at [facility].
Medical History
Past Medical History
Past Medical History: Reports Other
Additional Past Medical History:
Metastatic Breast Cancer
Anxiety / Depression
Chronic Pain Syndrome / Chronic Narcotic Dependence
GERD
Past Surgical History: Reports Other
Additional Past Surgical History:
right mastectomy
cholecystectomy
left hip replacement
c section x3
Social History
Tobacco: Smoker (3-5 cigarettes daily)
Alcohol: None
Drug: None
Personal:
Living: Jail
Family History
Family History: Not pertinent
Allergies / Home Medications
Allergies reflects when Allergies were last updated in [facility].
Home Medications with original date entered in [facility]
Allergy/Medication List:
Allergies
Allergy/AdvReac Type Severity Reaction Status Date / Time
latex Allergy Hives Verified 06/04/23 03:45
Penicillins Allergy Rash Verified 06/04/23 03:45
Home Medications
acetaminophen 325 mg tablet 650 mg PO Q6H PRN mild pain/temp>100.4 03/30/23
acetaminophen 325 mg tablet 650 mg PO Q8H 03/30/23
anastrozole 1 mg tablet 1 mg PO DAILY Cancer 03/30/23
duloxetine 30 mg capsule,delayed release 90 mg PO DAILY Mental Health/Anxiety 03/30/23
magnesium hydroxide 400 mg/5 mL oral suspension (Milk of Magnesia) 30 ml PO DAILY PRN if no bm x 3 days 03/30/23
magnesium oxide 400 mg PO BID Supplement 03/30/23
melatonin 3 mg tablet 6 mg PO HS Sleep 03/30/23
mirtazapine 15 mg tablet 30 mg PO HS Mental Health/Anxiety 03/30/23
pantoprazole 40 mg tablet,delayed release 40 mg PO DAILY Gastrointestinal Issue 03/30/23
sennosides 8.6 mg-docusate sodium 50 mg tablet (Senna-S) 2 tab-cap PO HS Constipation 03/30/23
sodium phosphates 19 gram-7 gram/118 mL enema (Fleet Enema) 118 ml ID DAILY PRN if suppository is ineffective 03/30/23
nicotine 21 mg/24 hr daily transdermal patch 21 mg transdermal DAILY #0 ea 04/01/23
calcium 600 mg capsule 600 mg PO DAILY 06/04/23
cetirizine 10 mg tablet (Zyrtec) 10 mg PO HS 06/04/23
cholecalciferol (vitamin D3) 50 mcg (2,000 unit) tablet 50 mcg PO DAILY 06/04/23
diphenhydramine HCl 25 mg tablet 25 mg PO Q6HPRN PRN Itching 06/04/23
dronabinol 2.5 mg capsule 5 mg PO AC 06/04/23
ondansetron 4 mg disintegrating tablet 4 mg PO ACHS 06/04/23
oxycodone 10 mg tablet 10 mg PO Q4H PRN severe pain 06/04/23
Review of Systems
-
History Source: Patient
A 12 point ROS was completed and negative except as noted: Yes
Constitutional: Reports Fatigue; Denies Fever or Chills
Respiratory: Reports Trouble Breathing; Denies Cough
Cardiac: Denies Chest Pain or Palpitations
Abdomen/GI: Reports Nausea, Vomiting and Anorexia; Denies Abdominal Pain or Diarrhea
Musculoskeletal: Denies Joint Pain or Edema
Neurological: Reports Dizzy and Weakness; Denies Headache or Numbness
Psych: Reports Depression; Denies Anxiety
Physical Exam
Vital Signs
Vital Signs
Temp Pulse Resp BP Pulse Ox
99.1 F 105 11 124/77 97
06/04/23 03:46 06/04/23 04:15 06/04/23 04:15 06/04/23 04:00 06/04/23 04:15
Physical Exam
General: Other (Frail, pale 48y F who appears older than her stated age. Not in acute distress.)
HEENT: Moist mucous membranes and PERRLA
Respiratory: Clear; No Wheezes, Rales or Rhonchi
Cardiac: S1/S2 and Regular Rhythm; No Murmur
GI: Soft, Non Tender, Non Distended and Normal Bowel Sounds
Musculoskeletal: No Clubbing, No Cyanosis and No Edema
Neuro: AO x 3 and Nonfocal/grossly intact
Laboratory Results
-
06/04/23 04:11
06/04/23 04:11
Laboratory Results
Total Bilirubin 0.2 mg/dl (0.2-1.3) 06/04/23 04:11
AST 27 U/L (14-36) 06/04/23 04:11
ALT < 10 U/L (0-35) 06/04/23 04:11
Alkaline Phosphatase 606 U/L (38-126) H 06/04/23 04:11
Impression/Plan
-
A/P: Patient is a 48y F with PMH significant for metastatic breast cancer to bone who presents to ED complaining of worsening lightheadedness and fatigue and is noted to have significant anemia.
Symptomatic Anemia
- Admit for further evaluation and treatment.
- PRBCs x 2 units ordered in the ED.
- Follow-up post-transfusion H&H and give additional blood products if needed.
- Iron studies, B12, etc done in March and all were unremarkable.
- Anemia likely / suspected secondary to marrow involvement of metastatic breast cancer (see below).
- Follow for clinical improvement with transfusion(s).
Metastatic Breast Cancer
- Not presently on any active therapy.
- Plan had been to initiate / re-initiate chemo in April.
- ? if there are issues with current functional status and note efforts via medication to improve diet / appetite and PO intake.
- Follow up with Dr. Rubio after acute hospital stay.
- Continue current med regimen including Marinol, etc for appetite stimulation, nausea control, etc.
Protein-Calorie Malnutrition
- See above. Continue to encourage PO intake and use appetite stimulant medications as tolerated.
Chronic Pain Secondary to Metastatic Cancer to Bone
Chronic Opioid Dependence secondary to the above
- Stable. Continue current oxycodone regimen and adjust as needed for adequate symptom control.
Anxiety / Depression
- Stable. Continue current med regimen.
DVT Prophylaxis: SCDs
Code Status: Full
--- NOTE | 2023-06-04 08:14 | W.PN.HOSP.TC ---
Today's Communication/Plan
-
Blood transfusion today. Hematology-oncology consult.
Assessment / Plan
Assessment / Plan
Physical Exam
General: Other (Frail, pale 48y F who appears older than her stated age. Not in acute distress.)
HEENT: Moist mucous membranes and PERRLA
Respiratory: Clear; No Wheezes, Rales or Rhonchi
Cardiac: S1/S2 and Regular Rhythm; No Murmur
GI: Soft, Non Tender, Non Distended and Normal Bowel Sounds
Musculoskeletal: No Clubbing, No Cyanosis and No Edema
Neuro: AO x 3 and Nonfocal/grossly intact
A/P:
Symptomatic Anemia
- Admit for further evaluation and treatment.
- PRBCs x 2 units ordered in the ED.
- Follow-up post-transfusion H&H and give additional blood products if needed.
- Evaluate for possible hemolysis this time. Iron substrate suggestive of anemia of chronic disease last time and B12 and folate were okay. Last time it was felt to be ?bone marrow involvement.
- Follow for clinical improvement with transfusion(s).
-Hematology-oncology consult
Metastatic Breast Cancer
- Currently on anastrozole
- Plan had been to initiate / re-initiate chemo in April.
- ? if there are issues with current functional status and note efforts via medication to improve diet / appetite and PO intake.
- Follow up with Dr. Ramiro RAMOS.
- Continue current med regimen including Marinol, etc for appetite stimulation, nausea control, etc.
Protein-Calorie Malnutrition
- See above. Continue to encourage PO intake and use appetite stimulant medications as tolerated.
Chronic Pain Secondary to Metastatic Cancer to Bone
Chronic Opioid Dependence secondary to the above
- Stable. Continue current oxycodone regimen and adjust as needed for adequate symptom control.
Anxiety / Depression/schizophrenia
- Stable. Continue current med regimen.
DVT Prophylaxis: SCDs
Code Status: Full
Anticipated Discharge: 24 - 48 hours
Subjective/Interval History
-
Date of Service: June 04, 2023
Patient with generalized weakness. No chest pain or shortness of breath
Objective Data
-
Labs:
Laboratory Results
06/04/23
04:11
WBC 4.7 L
Hgb 5.5 L*
Hct 17.7 L*
Plt Count 292
Sodium 131 L
Potassium 3.5
Chloride 97 L
Carbon Dioxide 29
BUN 23 H
Creatinine 0.7
Glucose 92
Calcium 9.5
Total Bilirubin 0.2
AST 27
ALT < 10
Alkaline Phosphatase 606 H
Vital Signs:
Vital Signs
Temp Pulse Resp BP Pulse Ox
99.0 F 101 11 118/73 96
06/04/23 06:38 06/04/23 07:00 06/04/23 07:00 06/04/23 07:00 06/04/23 07:00
I&O
06/03/23 06/04/23 06/05/23
06:59 06:59 06:59
Intake Total 0 / 0
Balance 0 / 0
--- NOTE | 2023-06-04 10:09 | CON.ONC ---
Impression
Impression
MBC currently on anastrozole
Symptomatic anemia with hemoglobin 5.5g/dl previously felt to be myelophthisic given nucleated RBC
Plan
Plan
Transfusions support
Monitor for bleeding
Evaluate for hemolysis
Iron studies from March reflect AOCD
Folate and B12 adequate
Rising alkaline phosphatase suggest progressive disease
Patient History
History of Present Illness
Patient is a 48y F with PMH significant for metastatic breast cancer who presents to ED complaining of lightheadedness, dizziness and general fatigue for the past 2-3 weeks. Patient was hospitalized here in March for similar presentation with
Hgb at that time = 5.4 g/dL. Patient denies any abdominal pain. No noted bleeding including hematemesis, hemoptysis, hematochezia or melena.
Patient complains of fairly consistent / constant nausea and relatively poor appetite as a result. Diagnosed with right-sided breast cancer 11/29/2015 and underwent mastectomy and had 6 positive lymph nodes. Had recurrence in her bones in the
summer 2022. Recently transferred and lives at [facility] in [place] since 02/25/2023. Currently on systemic therapy with anastrozole. She follows with Yeimi Rubio at [facility].
Past-Medical/Surgical History
Past Medical History:
Metastatic breast cancer
Anxiety / Depression
Chronic Pain Syndrome / Chronic Narcotic Dependence
GERD
Past Surgical History:
Right mastectomy
Cholecystectomy
Left hip replacement
C section x3
Social History:
Tobacco: Smoker (3-5 cigarettes daily)
Alcohol: None
Drug: None
Personal:
Living: Shelter
Family History:
NA
Patient Medication
�Medication �Instructions �Recorded �Confirmed �Last Taken �Type
acetaminophen 325 mg tablet 650 mg PO Q6H PRN mild 03/30/23 06/04/23 Unknown History
pain/temp>100.4
acetaminophen 325 mg tablet 650 mg PO Q8H 03/30/23 06/04/23 Unknown History
anastrozole 1 mg tablet 1 mg PO DAILY Cancer 03/30/23 06/04/23 Unknown History
duloxetine 30 mg capsule,delayed 90 mg PO DAILY Mental 03/30/23 06/04/23 Unknown History
release Health/Anxiety
magnesium hydroxide 400 mg/5 mL 30 ml PO DAILY PRN if no BM x 3 03/30/23 06/04/23 Unknown History
oral suspension (Milk of Magnesia) days
magnesium oxide 400 mg PO BID Supplement 03/30/23 06/04/23 Unknown History
melatonin 3 mg tablet 6 mg PO HS Sleep 03/30/23 06/04/23 Unknown History
pantoprazole 40 mg tablet,delayed 40 mg PO DAILY Gastrointestinal 03/30/23 06/04/23 Unknown History
release Issue
sennosides 8.6 mg-docusate sodium 2 tab-cap PO HS Constipation 03/30/23 06/04/23 Unknown History
50 mg tablet (Senna-S)
sodium phosphates 19 gram-7 118 ml DC DAILY PRN if suppository 03/30/23 06/04/23 Unknown History
gram/118 mL enema (Fleet Enema) is ineffective
nicotine 21 mg/24 hr daily 21 mg transdermal DAILY #0 ea 04/01/23 06/04/23 Unknown Rx
transdermal patch
calcium carbonate (Calcium 600) 600 mg PO DAILY 06/04/23 06/04/23 Unknown History
cetirizine 10 mg tablet (Zyrtec) 10 mg PO HS 06/04/23 06/04/23 Unknown History
cholecalciferol (vitamin D3) 50 50 mcg PO DAILY 06/04/23 06/04/23 Unknown History
mcg (2,000 unit) tablet
diphenhydramine HCl 25 mg tablet 25 mg PO Q6HPRN PRN itching 06/04/23 06/04/23 Unknown History
(Benadryl Allergy)
dronabinol 2.5 mg capsule 5 mg PO AC 06/04/23 06/04/23 Unknown History
mirtazapine 30 mg tablet 30 mg PO HS 06/04/23 06/04/23 Unknown History
ondansetron 4 mg disintegrating 4 mg PO ACHS 06/04/23 06/04/23 Unknown History
tablet
oxycodone 10 mg tablet 10 mg PO Q4H PRN severe pain 06/04/23 06/04/23 Unknown History
Active Medications
Generic Name Dose Route Start Last Admin
Trade Name Freq PRN Reason Stop Dose Admin
Acetaminophen 650 mg 06/04/23 09:51
Acetaminophen 325 Mg Tablet PO 07/02/23 09:50
Q8H JANE
Acetaminophen 650 mg 06/04/23 09:51
Acetaminophen 325 Mg Tablet PO 07/02/23 09:50
Q6H PRN
mild pain/temp>101
Anastrozole 1 mg 06/04/23 10:00
Anastrozole 1 Mg Tablet PO 07/02/23 09:59
DAILY JANE
Duloxetine HCl 90 mg 06/04/23 10:00
Duloxetine Delayed Release 30 Mg Capsule PO 07/02/23 09:59
DAILY JANE
Hydromorphone HCl 0.5 mg 06/04/23 09:51
Hydromorphone 0.5 Mg/0.5 Ml Syringe IV 06/18/23 09:50
Q4HPRN PRN
severe pain
Sodium Chloride 1,000 mls @ 80 mls/hr 06/04/23 09:51
Nss IV
[id number] JANE
Mirtazapine 30 mg 06/04/23 22:00
Mirtazapine 15 Mg Regular Release Tablet PO 07/02/23 21:59
HS JANE
Nicotine 21 mg 06/04/23 10:00
Nicotine 21 Mg Patch TRANSDERM 07/02/23 09:59
DAILY JANE
Ondansetron HCl 4 mg 06/04/23 09:51
Ondansetron 4 Mg/2 Ml Vial IV 07/02/23 09:50
Q6HPRN PRN
nausea and vomiting
Oxycodone HCl 10 mg 06/04/23 09:51
Oxycodone 10 Mg Regular Release Tablet PO 06/18/23 09:50
Q4H PRN
moderate pain
Pantoprazole Sodium 40 mg 06/04/23 10:00
Pantoprazole 40 Mg Delayed Release Tablet PO 07/02/23 09:59
DAILY JANE
Polyethylene Glycol 17 grams 06/04/23 09:51
Polyethylene Glycol Powder 17 Grams Packet PO 07/02/23 09:50
DAILY PRN
Constipation
Senna/Docusate Sodium tablet 06/04/23 22:00
Docusate W/Senna (Renea-Colace) Tablet PO 07/02/23 21:59
HS JANE
Review of Systems
-
Negative for additional complaints other than those noted in HPI
Physical Exam
-
Physical Exam
General: Frail, pale 48y F who appears older than her stated age. Not in acute distress.
HEENT: Moist mucous membranes and PERRLA
Respiratory: Clear; No Wheezes, Rales or Rhonchi
Cardiac: S1/S2 and Regular Rhythm; No Murmur
GI: Soft, Non Tender, Non Distended and Normal Bowel Sounds
Musculoskeletal: No Clubbing, No Cyanosis and No Edema
Neuro: AO x 3 and Nonfocal/grossly intact
Labs
Lab Results
WBC 4.7 10^3/uL (4.8-10.8) L 06/04/23 04:11
RBC 2.06 10^6/uL (4.20-5.40) L 06/04/23 04:11
Hgb 5.5 g/dL (12.0-16.0) L* 06/04/23 04:11
Hct 17.7 % (37.0-47.0) L* 06/04/23 04:11
MCV 85.9 fL (81.0-99.0) 06/04/23 04:11
MCH 26.7 pg (27.0-31.0) L 06/04/23 04:11
MCHC 31.1 g/dL (33.0-37.0) L 06/04/23 04:11
RDW 17.8 % (11.5-14.5) H 06/04/23 04:11
Plt Count 292 10^3/uL (130-400) 06/04/23 04:11
MPV 9.4 fL (7.4-10.4) 06/04/23 04:11
Abs Immat Gran (auto) 0.1 10^3/uL (0-0.05) H 06/04/23 04:11
Absolute Neuts (auto) 3.1 10^3/uL (1.4-6.5) 06/04/23 04:11
Absolute Lymphs (auto) 0.9 10^3/uL (1.2-3.4) L 06/04/23 04:11
Absolute Monos (auto) 0.6 10^3/uL (0.1-0.6) 06/04/23 04:11
Absolute Eos (auto) 0.1 10^3/uL (0-0.7) 06/04/23 04:11
Absolute Basos (auto) 0.0 10^3/uL (0-0.2) 06/04/23 04:11
Immature Gran % 1.3 % (0-0.5) H 06/04/23 04:11
Neutrophils % 65.3 % (42.2-75.2) 06/04/23 04:11
Lymphocytes % 18.5 % (20.5-51.1) L 06/04/23 04:11
Monocytes % 13.2 % (1.7-9.3) H 06/04/23 04:11
Eosinophils % 1.1 % (0-6) 06/04/23 04:11
Basophils % 0.6 % (0-2) 06/04/23 04:11
Creatinine 0.7 mg/dL (0.6-1.0) 06/04/23 04:11
Vital Signs
Vital Signs
Temp Pulse Resp BP Pulse Ox
99.1 F 96 18 139/81 98
06/04/23 09:27 06/04/23 09:27 06/04/23 09:27 06/04/23 09:27 06/04/23 08:15
[2023-06-04] MEDS: NSS 1000 IV ×2 (10:18→21:50)
[2023-06-04] MEDS: DILAUDID 0.5 MG IV ×3 (10:37→23:52)
[2023-06-04] MEDS: NICODERM TRANSDERMAL 21 MG TRANSDERM (10:41)
[2023-06-04] MEDS: TYLENOL 650 MG PO ×2 (10:41→19:42)
[2023-06-04] MEDS: PROTONIX 40 MG PO (10:42)
[2023-06-04] MEDS: ARIMIDEX 1 MG PO (10:42)
[2023-06-04] MEDS: CYMBALTA DELAYED RELEASE 90 MG PO (13:50)
--- NOTE | 2023-06-04 14:35 | PTCARENOTE ---
Patient transferred and oriented to Unit without Issue. AAOX3, Pale but CDI skin, Fatigued. AssistX1 with walker. MedSurg. Patient denies any needs at this time.
[2023-06-04 15:50] LABS: Hematocrit 30.6 % (37.0-47.0); Hemoglobin 10.3 g/dL (12.0-16.0); Reticulocyte Count 1.1 % (0.4-2.8)
[2023-06-04 15:53] LABS: LDH 289 U/L (120-246)
[2023-06-04] MEDS: TYLENOL PO (17:32)
[2023-06-04] MEDS: REMERON 30 MG PO (21:32)
[2023-06-04] MEDS: SENOKOT-S 2 TABLET PO (21:32)
[2023-06-05] VITALS (8 sets, daily range): BP systolic 143–171; BP diastolic 88–112; PULSE 101–109; O2SAT 98; BMI 21.5
[2023-06-05] MEDS: TYLENOL PO (02:36)
[2023-06-05] MEDS: DILAUDID 0.5 MG IV ×5 (04:27→22:10)
[2023-06-05 04:59] LABS: Hematocrit 30.4 % (37.0-47.0); Hemoglobin 10.3 g/dL (12.0-16.0); Mean Corp Hgb Conc. 33.9 g/dL (33.0-37.0); Mean Corpuscular Hgb 28.3 pg (27.0-31.0); Mean Corpuscular Volume 83.5 fL (81.0-99.0); Mean Platelet Volume 9.5 fL (7.4-10.4); Platelet Count 249 10^3/uL (130-400); Red Blood Cell Count 3.64 10^6/uL (4.20-5.40); Red Cell Dist. Width 15.7 % (11.5-14.5); White Blood Cell Count 5.5 10^3/uL (4.8-10.8)
[2023-06-05 05:29] LABS: Blood Urea Nitrogen 19 mg/dl (7-17); Calcium 9.5 mg/dl (8.4-10.2); Carbon Dioxide 26 mmol/L (22-30); Chloride 98 mmol/L (98-107); Estimated Creatinine Clearance 56 ml/min; Glucose 94 mg/dl (70-99); Potassium 3.8 mmol/L (3.5-5.1); Sodium 134 mmol/L (135-145); eGFR > 60.00
[2023-06-05 05:52] LABS: Urine Albumin Negative (Neg - Trace); Urine Bilirubin Negative (Negative); Urine Character Clear (Clear); Urine Color Yellow; Urine Glucose Negative (Negative); Urine Ketone Negative (Negative); Urine Leukocyte Negative (Negative); Urine Nitrite Negative (Negative); Urine Occult Blood Negative (Negative); Urine Specific Gravity 1.015 (<1.030); Urine Urobilinogen Negative (Neg - 1+)
--- NOTE | 2023-06-05 07:16 | W.PN.HOSP.TC ---
Today's Communication/Plan
-
Monitor hemoglobin.
Assessment / Plan
Assessment / Plan
Physical Exam
General: Other (Frail, pale 48y F who appears older than her stated age. Not in acute distress.)
HEENT: Moist mucous membranes and PERRLA
Respiratory: Clear; No Wheezes, Rales or Rhonchi
Cardiac: S1/S2 and Regular Rhythm; No Murmur
GI: Soft, Non Tender, Non Distended and Normal Bowel Sounds
Musculoskeletal: No Clubbing, No Cyanosis and No Edema
Neuro: AO x 3 and Nonfocal/grossly intact
A/P:
Symptomatic Anemia
- PRBCs x 2 units during this hospital stay
- Follow-up post-transfusion H&H and give additional blood products if needed.
- Evaluate for possible hemolysis this time. Iron substrate suggestive of anemia of chronic disease last time and B12 and folate were okay. Last time it was felt to be ?bone marrow involvement.
-Hematology-oncology consulted
-Hemoglobin today 10.3
-LDH is elevated as well as alkaline phosphatase somewhat concerning but will follow-up hematology recommendation.
-Follow-up hemoglobin tomorrow to ensure stability.
Metastatic Breast Cancer
- Currently on anastrozole
- Plan had been to initiate / re-initiate chemo in April.
- ? if there are issues with current functional status and note efforts via medication to improve diet / appetite and PO intake.
- Follow up with Dr. Ramiro RAMOS.
- Continue current med regimen including Marinol, etc for appetite stimulation, nausea control, etc.
Protein-Calorie Malnutrition
- See above. Continue to encourage PO intake and use appetite stimulant medications as tolerated.
Urinary symptoms per patient report. UA unremarkable.
Hyponatremia
-Mild and continue to monitor as outpatient
Chronic Pain Secondary to Metastatic Cancer to Bone
Chronic Opioid Dependence secondary to the above
- Stable. Continue current oxycodone regimen and adjust as needed for adequate symptom control.
Anxiety / Depression/schizophrenia
- Stable. Continue current med regimen.
DVT Prophylaxis: SCDs
Code Status: Full
Anticipated Discharge: 24 - 48 hours
Subjective/Interval History
-
Date of Service: June 05, 2023
Patient denies any chest pain or shortness of breath today.
Objective Data
-
Labs:
Laboratory Results
06/05/23
04:24
WBC 5.5
Hgb 10.3 L
Hct 30.4 L
Plt Count 249
Sodium 134 L
Potassium 3.8
Chloride 98
Carbon Dioxide 26
BUN 19 H
Creatinine 0.6
Glucose 94
Calcium 9.5
Vital Signs:
Vital Signs
Temp Pulse Resp BP Pulse Ox
98.4 F 101 18 157/83 98
06/04/23 23:10 06/04/23 23:10 06/04/23 23:10 06/04/23 23:10 06/04/23 23:10
I&O
06/04/23 06/05/23 06/06/23
06:59 06:59 06:59
Intake Total 0 / 0 2180 / 2180
Balance 0 / 0 0 / 2180
[2023-06-05] MEDS: CYMBALTA DELAYED RELEASE 90 MG PO (08:26)
[2023-06-05] MEDS: PROTONIX 40 MG PO (08:26)
[2023-06-05] MEDS: ARIMIDEX 1 MG PO (08:27)
[2023-06-05] MEDS: NICODERM TRANSDERMAL 21 MG TRANSDERM (08:27)
[2023-06-05] MEDS: NSS 1000 IV (10:00)
[2023-06-05] MEDS: TYLENOL 650 MG PO ×2 (10:00→17:48)
--- NOTE | 2023-06-05 10:17 | PTOTSP ---
pt currently requires supervision to minimal assistance to complete simple ADLs, bed mobility. pt deferred OOB activity at time of evaluation, though reports she will ask for assistance to complete. no acute OT needs identified at this time, will
sign off.
--- NOTE | 2023-06-05 11:15 | CM ---
Patient seen bedside, initial assessment completed. Patient LTC resident at [facility]. CM spoke with nurse at [facility], Magi, confirmed patient is LTC, wheelchair bound, able to return when stable. Patient PCP Leland Uribe, [facility]. CM will continue to follow for discharge planning needs.
PLAN; d/c back to [facility] when stable
[facility]:
Report: [phone] ext. [phone]
[2023-06-05] MEDS: REMERON 30 MG PO (21:28)
[2023-06-05] MEDS: SENOKOT-S 2 TABLET PO (21:28)
[2023-06-06] MEDS: DILAUDID 0.5 MG IV ×4 (02:15→15:01)
[2023-06-06] MEDS: TYLENOL PO (02:15)
[2023-06-06 05:55] LABS: % Basophils 0.3 % (0-2); % Eosinophils 0.8 % (0-6); % Immature Granulocytes 1.4 % (0-0.5); % Lymphocytes 13.8 % (20.5-51.1); % Monocytes 12.6 % (1.7-9.3); % Neutrophils 71.1 % (42.2-75.2); Absolute Eosinophils 0.1 10^3/uL (0-0.7); Absolute Immature Granulocytes 0.1 10^3/uL (0-0.05); Absolute Lymphocytes 0.9 10^3/uL (1.2-3.4); Absolute Monocytes 0.8 10^3/uL (0.1-0.6); Absolute Neutrophils 4.6 10^3/uL (1.4-6.5); Hematocrit 32.5 % (37.0-47.0); Hemoglobin 10.8 g/dL (12.0-16.0); Mean Corp Hgb Conc. 33.2 g/dL (33.0-37.0); Mean Corpuscular Hgb 28.2 pg (27.0-31.0); Mean Corpuscular Volume 84.9 fL (81.0-99.0); Mean Platelet Volume 9.5 fL (7.4-10.4); Nucleated Red Blood Cells % 1.8 %; Platelet Count 225 10^3/uL (130-400); Red Blood Cell Count 3.83 10^6/uL (4.20-5.40); Red Cell Dist. Width 15.4 % (11.5-14.5); White Blood Cell Count 6.5 10^3/uL (4.8-10.8)
[2023-06-06 06:00] VITALS: BMI 23.0
[2023-06-06 07:00] VITALS: BP 158/109
[2023-06-06 07:07] VITALS: BP 138/95; BP 152/100; BP 159/97; PULSE 123; PULSE 128; PULSE 131
[2023-06-06 07:26] VITALS: BP 164/84
[2023-06-06] MEDS: ZOFRAN 4 MG IV (08:16)
[2023-06-06] MEDS: ARIMIDEX 1 MG PO (08:17)
[2023-06-06] MEDS: NICODERM TRANSDERMAL 21 MG TRANSDERM (08:17)
[2023-06-06] MEDS: CYMBALTA DELAYED RELEASE 90 MG PO (08:17)
[2023-06-06] MEDS: PROTONIX 40 MG PO (08:17)
[2023-06-06] MEDS: TYLENOL 650 MG PO (08:18)
--- NOTE | 2023-06-06 09:16 | W.PN.HOSP.TC ---
Today's Communication/Plan
-
Discharge
Assessment / Plan
Assessment / Plan
Gen-AAOx3, NAD
HEENT-NC, AT, anicteric, clear oral mm
Neck-supple
CV-reg, no M, +S1/S2
Lungs-clear B/L
Abd-soft, NT, ND
Ext-no edema
Musculoskeletal-no cyanosis, clubbing
Skin-warm and dry
Neuro-grossly non-focal
Psych-calm, cooperative
Mild nausea -given a dose of Zofran half an hour ago. May be related to a mild migraine headache. She only takes Tylenol as needed for her headaches.
Symptomatic Anemia
- PRBCs x 2 units during this hospital stay
- Follow-up post-transfusion H&H and give additional blood products if needed.
- Evaluate for possible hemolysis this time. Iron substrate suggestive of anemia of chronic disease last time and B12 and folate were okay. Last time it was felt to be ?bone marrow involvement.
-Hematology-oncology consulted
-Hemoglobin today 10.8, stable. No signs of hemolysis. Follow-up with oncology after discharge.
Metastatic Breast Cancer
- Currently on anastrozole
- Plan had been to initiate / re-initiate chemo in April.
- ? if there are issues with current functional status and note efforts via medication to improve diet / appetite and PO intake.
- Follow up with Dr. Ramiro RAMOS.
- Continue current med regimen including Marinol, etc for appetite stimulation, nausea control, etc.
Protein-Calorie Malnutrition
- See above. Continue to encourage PO intake and use appetite stimulant medications as tolerated.
Urinary symptoms per patient report. UA unremarkable.
Hyponatremia
-Mild and continue to monitor as outpatient
Chronic Pain Secondary to Metastatic Cancer to Bone
Chronic Opioid Dependence secondary to the above
- Stable. Continue current oxycodone regimen and adjust as needed for adequate symptom control.
Anxiety / Depression/schizophrenia
- Stable. Continue current med regimen.
DVT Prophylaxis: SCDs
Code Status: Full
Dispo - medically stable for discharge back to [facility] today. Case management aware. Patient agrees with plan.
31 minutes spent in discharge process.
Anticipated Discharge: Today
Subjective/Interval History
-
Date of Service: June 06, 2023
Patient seen and examined. Fatigue has resolved. Complaining of mild nausea. Mild headache.
Objective Data
-
Labs:
Laboratory Results
06/06/23
05:09
WBC 6.5
Hgb 10.8 L
Hct 32.5 L
Plt Count 225
Vital Signs:
Vital Signs
Temp Pulse Resp BP Pulse Ox
99.9 F 115 12 164/84 97
06/06/23 07:00 06/06/23 07:00 06/06/23 07:00 06/06/23 07:26 06/06/23 07:00
I&O
06/05/23 06/06/23 06/07/23
06:59 06:59 06:59
Intake Total 2180 / 2180 240 / 240
Balance 2180 / 2180 240 / 240
Review of Systems
-
History Source: Patient
All other systems: Reviewed and negative
--- NOTE | 2023-06-06 09:24 | W.DS.TRANS ---
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
-
Discharge Instructions:
Discharge Diagnosis/Procedures Symptomatic anemia
Diet Regular,Restrict fluids to 48 oz
Activity As tolerated
Driving Restrictions No driving
Bathing Restrictions None
Blood Work CBC in 1 week
Instructions:
Stand-Alone Forms:
Changes to Home Medications: No
Discharge Medications:
DC Medications w/original date entered in [employer]
acetaminophen 325 mg tablet 650 mg PO Q6H PRN mild pain/temp>100.4 03/30/23
acetaminophen 325 mg tablet 650 mg PO Q8H pain 03/30/23
anastrozole 1 mg tablet 1 mg PO DAILY Cancer 03/30/23
duloxetine 30 mg capsule,delayed release 90 mg PO DAILY Mental Health/Anxiety 03/30/23
magnesium hydroxide 400 mg/5 mL oral suspension (Milk of Magnesia) 30 ml PO DAILY PRN if no BM x 3 days 03/30/23
magnesium oxide 400 mg PO BID Supplement 03/30/23
melatonin 3 mg tablet 6 mg PO HS Sleep 03/30/23
pantoprazole 40 mg tablet,delayed release 40 mg PO DAILY Gastrointestinal Issue 03/30/23
sennosides 8.6 mg-docusate sodium 50 mg tablet (Senna-S) 2 tab-cap PO HS Constipation 03/30/23
sodium phosphates 19 gram-7 gram/118 mL enema (Fleet Enema) 118 ml [place] DAILY PRN if suppository is ineffective 03/30/23
nicotine 21 mg/24 hr daily transdermal patch 21 mg transdermal DAILY #0 ea 04/01/23
calcium carbonate (Calcium 600) 600 mg PO DAILY Supplement 06/04/23
cetirizine 10 mg tablet (Zyrtec) 10 mg PO HS Allergies 06/04/23
cholecalciferol (vitamin D3) 50 mcg (2,000 unit) tablet 50 mcg PO DAILY Supplement 06/04/23
diphenhydramine HCl 25 mg tablet (Benadryl Allergy) 25 mg PO Q6HPRN PRN itching 06/04/23
dronabinol 2.5 mg capsule 5 mg PO AC appetite stimulant 06/04/23
mirtazapine 30 mg tablet 30 mg PO HS depression/sleep 06/04/23
ondansetron 4 mg disintegrating tablet 4 mg PO ACHS nausea 06/04/23
oxycodone 10 mg tablet 10 mg PO Q4H PRN severe pain #5 tabs 06/06/23
Home Medication Changes
Pending Results: No
--- NOTE | 2023-06-06 09:36 | CM ---
CM following re: discharge planning.
Reviewed pt's chart, met with pt.
Discharge order is noted. Pt is aware, expressed her agreement with discharge and pt stated she will notify her family.
Pt is a LTC resident at [facility]. A referral to [facility] made, spoke to nursing banana ripening room supervisor Sylvia and she confirmed that pt is accepted for admission today and 3:00 p.m. cone picker time requested.
to schedule an ambulance, BLS. PMNC completed and left with .
[facility] nursing report: [phone]
Discharge instructions fax:[phone]
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
[2023-06-06 11:39] LABS: Haptoglobin 414 mg/dL (30-200)
[2023-06-06] MEDS: ROXICODONE 10 MG PO (14:24)
[2023-06-06 15:00] VITALS: BP 139/87
== END 2023-06-06 17:35 | DRG 598 ==
LOC: 4 WEST ACU 06:27
PROVIDERS: Hospitalist; Nurse Practitioner Family; ADMITTING PHYSICIAN Hospitalist; ATTENDING PHYSICIAN Hospitalist; EMERGENCY PHYSICIAN Emergency Medicine; FAMILY PHYSICIAN Internal Medicine; OTHER PHYSICIAN Internal Medicine Hematology & Oncology
PROC: 30243N1 Transfusion of Nonautologous Red Blood Cells into Central Vein, Percutaneous Approach (ICD-10-PCS; 2023-06-04)
DX: C50.911 Malignant neoplasm of unspecified site of right female breast (principal); C79.51 Secondary malignant neoplasm of bone; F11.20 Opioid dependence, uncomplicated; E46 Unspecified protein-calorie malnutrition; E87.1 Hypo-osmolality and hyponatremia; R79.89 Other specified abnormal findings of blood chemistry; F32.A Depression, unspecified; F20.9 Schizophrenia, unspecified; F17.210 Nicotine dependence, cigarettes, uncomplicated; G89.3 Neoplasm related pain (acute) (chronic); D63.0 Anemia in neoplastic disease; F41.9 Anxiety disorder, unspecified; G89.4 Chronic pain syndrome; R11.2 Nausea with vomiting, unspecified; K21.9 Gastro-esophageal reflux disease without esophagitis; Z96.642 Presence of left artificial hip joint; Z90.11 Acquired absence of right breast and nipple; Z91.040 Latex allergy status; Z88.0 Allergy status to penicillin; Z79.811 Long term (current) use of aromatase inhibitors
CPT/HCPCS: 36430; 80048; 80053; 81003; 83010; 83615; 85014; 85018; 85025; 85027; 85045; 86850; 86880; 86900; 86901; 86920; 87070; 96374; 97162; 97166; 99285; P9016